=== PATIENT | female | born 1985 | race African-American/Black ===

== ENCOUNTER 2017-06-04 17:53 | Inpatient (IN) | payer OTHER ==
[~2017-06-04] VITALS: Ht 170.2 cm; Wt 140.2 kg
[2017-06-04 19:48] LABS: ABSOLUTE BASOPHIL COUNT 0.1 /CUMM (0.0-0.2); ABSOLUTE EOSINOPHIL COUNT 0.1 /CUMM (0.0-0.7); ABSOLUTE GRANULOCYTE CT 6.3 /CUMM (1.4-6.5); ABSOLUTE LYMPH COUNT 1.8 /CUMM (1.2-3.4); ABSOLUTE MONOCYTE COUNT 0.7 /CUMM (0.10-0.60); BASOPHIL % 0.7 % (0.0-2.0); EOSINOPHIL % 1.2 % (0-5); GRANULOCYTE % 70.3 % (42.2-75.2); HEMATOCRIT 34.3 % (37-47); MEAN CORPUSCULAR HGB 26.4 PG (27.0-31.0); MEAN CORPUSCULAR HGB CONC 32.6 G/DL (33.0-37.0); MEAN CORPUSCULAR VOLUME 81.1 FL (81.0-99.0); MEAN PLATELET VOLUME 8.2 FL (7.4-10.4); PLATELET COUNT 338 /CUMM (130-400); RED BLOOD CELL CT 4.23 /CUMM (4.20-5.40)
--- NOTE | 2017-06-04 21:24 | History & Physical ---
General Information and HPI MD Statement: I have seen and personally examined CHRIST VALDEZ and documented this H&P. The patient is a 31 year old female at [] weeks and [] days gestation who presented with a chief complaint of []. Oligohydramnios and elevated blood pressure. Patient has a history of chronic hypertension she was on 81 mg of aspirin throughout she denies rupture of membranes however I she has only 3 pockets of 1 cm on the ultrasound. Her NST is reactive her PIH labs are normal. Secondary to patient's - induced hypertension and oligo we've discussed induction of labor with misoprostol and Pitocin patient aware the risks and signed her consents History of Present Illness: 31-year-old 1 para 0 at 38-5/7 weeks gestation presents with oligohydramnios -induced hypertension for induction. Patient seen in my office for a routine ultrasound fluid noted to be low. Patient seen and evaluated childbirth center with elevated blood pressures 1:30 over 90s PIH labs are normal Allergies/Medications Allergies: Coded Allergies: penicillin G (UNKNOWN 06/04/17) Past History development advisor History : 1 Para: 0 Last Menstrual Period: 08/03/2016 Past development advisor History: none Surgical History Pertinent Surgical History: none Past Family/Social History Psychosocial History Smoking Status: Former Smoker Review of Systems Review of Systems: Patient denies headache visual changes fever abdominal pain Exam & Diagnostic Data Obstetric Exam Wgt Gained During : 19 pounds Pelvimetry: Untested Dilation (cm): 1 Effacement (%): 50 Station: 0 Membranes: intact Fluid: unknown Fundal Height (cm): 39 Multiple Gestation? No Contractions: None Patient for Induction? Yes Colunga Score Colunga Score Response Value Cervix Position: posterior 0 Cervix Consistency: soft 2 Cervix Effacement: 30-50% 1 Cervix Dilation: 1-2 cm 1 Total 4 Physical Exam: Obese white female HEENT anicteric Abdomen soft nontender estimated weight 6 pounds extremities S1 edema reflexes +2 negative Homans Labs Blood Type & Rh: PositiveB Antibody Screen: Negative Hct/Hgb & Platelets #1: /37/140 Hct/Hgb & Platelets #2: 32 Rubella: I VDRL #1: Pending VDRL #2: Pending HbsAg: Pending HIV #1: [facility] NA HIV #2 Negative 1 Hr P Group B Strep: Positive Initial Ultrasound: Normal Anatomy Ultrasound: Normal Genetic Testing: Negative Assessment/Plan Assessment/Plan: Assessment assessment term oligohydramnios -induced hypertension Plan serial induction misoprostol Pitocin risks reviewed with patient As Ranked By This Provider Problem List: 1. Oligohydramnios antepartum 2. induced hypertension, delivered, current hospitalization Core Measures Venous Thromboembolism VTE Risk Factors / No Mechanical VTE Prophylaxis d/t Other No VTE Pharm Prophylaxis d/t Other
--- NOTE | 2017-06-04 21:26 | PN- Obstetrical ---
Subjective Subjective: No contractions O complaint Objective Last 24 Hrs of Vital Signs/I&O As per the paper chart Physical Exam: Well-built white female HEENT anicteric Abdomen soft Claude weight 6 pounds Obstetric Exam Dilation (cm): 1 Effacement (%): 50 Station: 0 Membranes: unknown Fluid: unknown Multiple Gestation? No Contractions: None Assessment/Plan Assessment/Plan Song term PIH oligohydramnios plan misoprostol No. 1 placed
--- NOTE | 2017-06-05 03:40 | PN- Obstetrical ---
Subjective Subjective: FEELING PRESSURE Objective Last 24 Hrs of Vital Signs/I&O Intake & Output 06/05 0800 06/05 0000 06/04 1600 Intake Total Output Total Balance Patient 309 lb Weight Physical Exam: PE WELL BUILT BF ABD SOFT EXT -EDEMA Obstetric Exam Dilation (cm): 2 Effacement (%): 80 Station: 0 Membranes: intact Fluid: unknown Multiple Gestation? No Contractions: Q 10 MINUTES Assessment/Plan Assessment/Plan ASSESS OLIGOHYDRAMNIOS AT 38 WEEKS WITH PIH PLAN MISOPROSTIL 2
--- NOTE | 2017-06-05 08:28 | PN- Obstetrical ---
Subjective Subjective: THERE HAS GOT TO BE A BETTER WAY Objective Last 24 Hrs of Vital Signs/I&O Intake & Output 06/05 1600 06/05 0800 06/05 0000 Intake Total Output Total Balance Patient 309 lb Weight Physical Exam: PE OBESE BF IN NAD ABD SOFT NT EXT +2 EDEMA _REFLEXES Obstetric Exam Dilation (cm): 2 Effacement (%): 90 Station: 0 Membranes: intact Fluid: unknown Multiple Gestation? No Contractions: NONE Assessment/Plan Assessment/Plan ASSESS TERM CHRONIC HTN OLIGO PLAN PIT/EPIDURAL OBERVE FOR
--- NOTE | 2017-06-05 17:28 | PN- Obstetrical ---
Subjective Subjective: Failed attempt at epidural by anesthesia alternatives to pain management reviewed with the patient Objective Last 24 Hrs of Vital Signs/I&O Intake & Output 06/05 1600 06/05 0800 06/05 0000 Intake Total Output Total Balance Patient 309 lb Weight Physical Exam: Obese black female in no apparent distress with glasses HEENT icteric Abdomen soft Estimated weight 3700 g Right forearm swollen good pulses Obstetric Exam Dilation (cm): 5 Effacement (%): 90 Station: 0 Membranes: AROM Fluid: clear Multiple Gestation? No Contractions: Every 6 minutes Assessment/Plan Assessment/Plan Assessment is term oligohydramnios chronic hypertension Plan observe for on changing IV location on nitrous oxide Problem List: 1. induced hypertension, delivered, current hospitalization 2. Oligohydramnios antepartum Attending MD Review Statement Attending Statement Attending MD Statement: examined this patient
--- NOTE | 2017-06-05 19:37 | PN- Obstetrical ---
Subjective Subjective: USING NITROUS FOR PAIN Objective Last 24 Hrs of Vital Signs/I&O Intake & Output 06/05 1600 06/05 0800 06/05 0000 Intake Total Output Total Balance Patient 309 lb Weight Physical Exam: PE OBESE BFIN NAD ABD SOFT Obstetric Exam Dilation (cm): 6 Effacement (%): 90 Station: 0 Membranes: AROM Fluid: clear Multiple Gestation? No Contractions: Q 6 MINUTES Assessment/Plan Assessment/Plan ASSESS TERMPREGNANCY OLIGO PLAN CONT PITOCIN
[2017-06-06 00:30] LABS: ABSOLUTE BASOPHIL COUNT 0 /CUMM (0.0-0.2); ABSOLUTE EOSINOPHIL COUNT 0 /CUMM (0.0-0.7); ABSOLUTE LYMPH COUNT 1.1 /CUMM (1.2-3.4); ABSOLUTE MONOCYTE COUNT 0.4 /CUMM (0.10-0.60); BASOPHIL % 0 % (0.0-2.0); EOSINOPHIL % 0.1 % (0-5); GRANULOCYTE % 88.6 % (42.2-75.2); HEMATOCRIT 34.8 % (37-47); MEAN CORPUSCULAR HGB 27.1 PG (27.0-31.0); MEAN CORPUSCULAR HGB CONC 33.3 G/DL (33.0-37.0); MEAN CORPUSCULAR VOLUME 81.2 FL (81.0-99.0); MEAN PLATELET VOLUME 7.9 FL (7.4-10.4); PLATELET COUNT 345 /CUMM (130-400); RBC DISTRIBUTION WIDTH 14.5 % (11.5-14.5); RED BLOOD CELL CT 4.29 /CUMM (4.20-5.40); WHITE BLOOD CELL COUNT 13.5 /CUMM (4.8-10.8)
--- NOTE | 2017-06-06 00:50 | PN- Obstetrical ---
Subjective Subjective: NO COMPLAINTS Objective Last 24 Hrs of Vital Signs/I&O PER CHART Physical Exam: PE WELL BUILT BF IN NAD HEENTPERRLAEOMI ABD SOFT NT EXT +1 EDEMA +2 REFLEXES Obstetric Exam Dilation (cm): 6 Effacement (%): 90 Station: 0 Membranes: intact Fluid: clear Multiple Gestation? No Contractions: Q 3 IUPC ADEQUATE Assessment/Plan Assessment/Plan ASSESS TERMPREGNANCY CHRONIC HTN OLIGO FAILURE TO DILATE PLAN C/S
--- NOTE | 2017-06-06 02:37 | Operative Report ---
Operative/Inv Procedure Report Surgery Date: 06/06/17 Name of Procedure: Primary low flap transverse section via Pfannenstiel skin incision Pre-Operative Diagnosis: All rest of dilatation oligohydramnios chronic hypertension and failed induction Post-Operative Diagnosis: : Cord same Estimated Blood Loss: 800 Surgeon/Public Information Officer: Kar MONTERO,Liss Morales and Dr. Bakari Felipe Anesthesia: general endotracheal tube Operative/Procedure Note Note: patient was taken the operating room placed on the table the abdomen was prepped and draped in standard fashion position after adequate induction of general anesthesia. Skin was cut carried down to rectus fascia was cut in curvilinear fashion in either direction using curved Cruz's. Dissected bluntly as well as sharply off of the rectus sheath. Peritoneal cavity was entered high into the abdomen the low platelet Cheri was placed in the lower end of the incision. In the lower uterine segment the uterus was cut a bladder flap was developed using Metzenbaums the bladder blade was replaced to protect the bladder and lower uterine segment use was nicked into with back denies dissected bluntly as well as sharply. The cord was noted at the top of the baby's head. He was delivered over the abdominal wall suction well into clear cornea was applied and cut was handed pediatricians waiting delivery room table resuscitation. Placenta was delivered manually noted to be intact with likely mature trial laps to ensure it was free of adherent membranes uses oversewn running locking suture transabdominal cavity after then irrigated copiously with warm saline to clear the peritoneum was reapproximated 0 the fascia was reapproximated with 2 to continuous sutur after the Bovie coagulation of the subcutaneous tissue. The counts were correct the patient was extubated and transferred recovery room awake alert clear urine
[2017-06-06 03:48] VITALS: BP 136/65
--- NOTE | 2017-06-06 09:13 | PN- Post Delivery/GYN ---
Subjective Subjective: NO COMPLAINTS Objective Last 24 Hrs of Vital Signs/I&O Vital Signs Date Time Temp Pulse Resp B/P B/P Pulse O2 O2 Flow FiO2 Mean Ox Delivery Rate 06/06 0348 136/65 Physical Exam: PE OBESE BF IN NAD ABD SOFT NT LOCHIA MINIMAL EXT -EDEMA Assessment/Plan Assessment/Plan ASSESS S/P C/S PLAN CONT PPC INCREASE AMBULATION
--- NOTE | 2017-06-06 09:44 | Cons- Medical ---
Pancho MONTERO,Bud 06/06/17 0944: General Information and HPI Consulting Request Date of Consult: 06/06/17 Requested By: Liss Lakhani MD Reason for Consult: Post Source of Information: patient, family, old records Exam Limitations: no limitations History of Present Illness: Ms Tatum is a 31-year-old female with past medical history of asthma and insulin resistance who was admitted to the hospital on 06/04/2017 after routine visit at the office of her obstetric and pallet sorter found that she was hypertensive and had oligohydramnios. She was 38 weeks and 5/7 days at this pont. The patient was subsequently induced and had a successful delivery a few hours prior to our interaction. She is a 1 para 1. During the time of our clinical interaction the patient appeared comfortable. She endorsed no complaints. She denied any vision changes, any headaches, any pain, any nausea or any vomiting, she complained of no issues voiding. Patient states that in the past she has had issues with hypertension and may have been placed on lisinopril although is unable to provide much of a clinical history. She did state that approximately May 13 when she began to see Dr. Lakhani she was told that her blood pressure was high. She subsequently took time off work and noted that blood pressure improved. I called the office of her primary care physician Dr. Shyam Islas ([phone] ) who she last saw in June 2016 for a follow-up appointment after being admitted to [facility] where she was admitted for asthma exacerbation and pneumonia. It appears that the only medication the patient had been on were inhalers (for asthma) and metformin. Her grandmother was present in the room. Her new born baby was also present in the room. Over the course of the she stated that she continue to take aspirin. Allergies/Medications Allergies: Coded Allergies: penicillin G (UNKNOWN 06/04/17) Current Medications: Current Medications Sig/Jeremy Start time Last Medication Dose Route Stop Time Status Admin Acetaminophen 1,000 MG ONCE ONE 06/05 2199 DC 06/05 N/A 1 UNIT IV 06/05 Benzocaine/Menthol 1 TERRY Q2P PRN 06/06 0930 AC 06/06 PO 1318 Butorphanol Tartrate 2 MG ONCE ONE 06/05 2199 DC 06/05 IM 04/12 2201 2120 Butorphanol Tartrate 2 MG ONCE ONE 06/05 2200 DC 06/05 IV 06/05 2201 2118 Butorphanol Tartrate 1 MG Q4P PRN 06/05 0830 DC IM Butorphanol Tartrate 1 MG Q4P PRN 06/05 0830 DC IV Carboprost 250 MCG ONE ONE 06/06 0245 DC Tromethamine IM 06/06 0246 Cefazolin Sodium 2,000 MG .STK-MED ONE 06/06 005 DC IM 06/06 005 Citric Acid/Sodium 30 ML .[0NCE] 06/06 0100 DC 06/06 Citrate PO 0100 Clindamycin 900 MG IQ8 06/05 0000 DC 06/05 Dextrose/Water 50 ML IV 2218 Enoxaparin Sodium 40 MG DAILY 06/06 0900 AC 06/06 SC 0807 Fentanyl Citrate 200 MCG .STK-MED ONE 06/06 50 DC IM 06/06 005 Gentamicin Sulfate 80 MG ONE ONE 06/06 0100 DC 06/06 Dextrose/Water 100 ML IV 06/06 0129 0138 Hydromorphone HCl 2 MG Q3P PRN 06/06 0930 AC 06/06 PO 1319 Hydromorphone HCl 50 MG Q24H PRN 06/06 0200 AC 06/06 Sodium Chloride 45 ML IV 0237 Ibuprofen 800 MG Q6P PRN 06/06 0930 AC PO Ketorolac 30 MG ONCE ONE 06/06 0945 DC 06/06 Tromethamine IV 06/06 0946 0959 Lactated Ringer's 1,000 ML .Q8H 06/06 1100 DC 06/06 IV 1050 Lactated Ringer's 1,000 ML CONTINOUS INFUSION 06/06 0100 DC IV Lactated Ringer's 1,000 ML Q8H 06/05 1999 W[place] 06/05 IV 2032 Midazolam HCl 5 MG .STK-MED ONE 06/06 005 DC IM 06/06 005 Misoprostol 25 MCG Q4P PRN 06/05 1999 DC 06/05 VAG 0230 Morphine Sulfate 4 MG .STK-MED ONE 06/06 005 DC IM 06/06 005 Ondansetron HCl 4 MG ONCE ONE 06/06 0930 DC PO 06/06 0931 Oxytocin 20 UNITS ONCE ONE 06/06 0315 DC 06/06 Lactated Ringer's 1,000 ML IV 06/06 1114 0311 Oxytocin 10 UNITS .STK-MED ONE 06/06 0059 DC IM 06/06 0100 Oxytocin 30 UNITS PER PROTOCL 06/05 0845 DC 06/05 Lactated Ringer's 500 ML IV 0840 Review of Systems Review of Systems Constitutional: Reports: see HPI. GI: Reports: vomiting (Prior to ). Past History Travel History Traveled to [place] past 21 day No Surgical History Surgical History: 1 Psychosocial History Where Do You Live? Home Smoking Status: Former Smoker Exam & Diagnostic Data Last 24 Hrs of Vital Signs/I&O Vital Signs Date Time Temp Pulse Resp B/P B/P Pulse O2 O2 Flow FiO2 Mean Ox Delivery Rate 06/06 0348 136/65 Physical Exam General Appearance: well developed/nourished, no apparent distress, alert, obese Head: atraumatic, normal appearance Eyes: Bilateral: EOMI. Ears, Nose, Throat: normal pharynx, normal ENT inspection, Cervical tendenopathy Neck: normal inspection Respiratory: normal breath sounds, chest non-tender Cardiovascular: regular rate/rhythm, tachycardia Peripheral Pulses: 4+ dorsalis pedis (R), 4+ dorsalis pedis (L) Gastrointestinal: normal bowel sounds, soft, non-tender, C -Section Scar. Clean Dry and Intact Extremities: normal inspection, no edema Neurologic/Psych: awake, alert, oriented x 3 Cranial Nerves: PERRL Last 24 Hrs of Labs/Armando: Laboratory Tests 06/06/17 0730: Urine Opiates Screen > 4000.00 H, Methadone Screen < 40, Barbiturate Screen < 60, Ur Phencyclidine Scrn < 6.00, Amphetamines Screen < 100, U Benzodiazepines Scrn > 800 H, Urine Cocaine Screen < 50, Urine Cannabis Screen 5.30, Urinalysis LIGHT H, Urine Color YEL, Urine Clarity HAZY H, Urine pH 6.0, Ur Specific [place] >= 1.030, Urine Protein 30 H, Urine Ketones >=80, Urine Nitrite NEG, Urine Bilirubin NEG@ICTO, Urine Urobilinogen 0.2, Ur Leukocyte Esterase NEG, Ur Microscopic SEDIMENT EXAMINED, Urine RBC 5-10 H, Urine WBC 1-3 H, Ur Epithelial Cells FEW, Urine Bacteria FEW H, Hyaline Casts 1-3 H, Granular Casts 1-3 H, Urine Mucus MANY H, Micro UA Comment MORE INFO: H, Urine Hemoglobin TRACE-INTACT, Urine Glucose NEG 06/06/17 0005: Estimated GFR > 60, Uric Acid 4.5, AST 19, ALT 33, Lactate Dehydrogenase 315, CBC w Diff NO MAN DIFF REQ, RBC 4.29, MCV 81.2, MCH 27.1, MCHC 33.3, RDW 14.5, MPV 7.9, Gran % 88.6 H, Lymphocytes % 8.2 L, Monocytes % 3.1, Eosinophils % 0.1, Basophils % 0, Absolute Granulocytes 12.0 H, Absolute Lymphocytes 1.1 L, Absolute Monocytes 0.4, Absolute Eosinophils 0, Absolute Basophils 0 Assessment/Plan Assessment/Plan Ms Tatum is a 31-year-old female with past medical history of asthma and diabetes who was admitted to the hospital on 06/04/2017 after routine visit at the office of her obstetric and pallet sorter found that she was hypertensive and had oligohydramnios. She was 38 weeks and 5/7 days at this pont. The medicine team was consult. For management of hypertension and the UA showing evidence of casts. induced/Transient hypertension. At the time of my clinical interaction with the patient her blood pressure was stable at 112/82. Over the past 24 hours she had labile hypertension as high as 168/104 and as low as 112/82. Her hypertension may be attributed to pain. Plan Ensure pain is well-controlled with Percocet. Use Dilaudid sparingly as studies documenting effects on the are limited. Ensure BP cuff sizes correct. An EKG has been ordered to rule out any LVH. If patient needs antihypertensive may consider labetalol. #Abnormal UA Casts reported in Urine. Brett attributed to decreased PO intake/Dehydration. Cr. normal. Plan Encourage PO intake. Outpatient follow up. History of Insulin Resistance. Plan: Consider addition of fingersticks 3 times a day at bedtime. Hemoglobin A1c. Lipid Panel. May consider resuming the patient on metformin 750 mg at the time of discharge. History of asthma. No signs of any wheezing or hypoxia Plan TRC and nebulizer treatments as needed. May resume albuterol if warranted. DVT prophylaxis as per CHEESEMAKER HELPER. Incentive spirometer. At the time of discharge please ensure the patient has a referral to primary care physician in the area that she lives in. Patient is a full code. Hba1c Lipid Panel ?Abdominal Imagin Problem List: 1. induced hypertension, delivered, current hospitalization Consult Acknowledgment - Thank you for your consult request. Carlos Dong MD 06/06/17 1433: General Information and HPI Allergies/Medications Home Med List: Hydromorphone HCl 2 MG TABLET 2 MG PO Q3P PRN PAIN SCALE 7-10 (SEVERE) Ibuprofen 800 MG TABLET 800 MG PO Q6P PRN PAIN SCALE 4-6 (MODERATE) Assessment/Plan Consult Acknowledgment - Thank you for your consult request. Attending MD Review Statement Attending Statement Attending MD Statement: examined this patient, discuss w/resident/PA/HELPER MARBLE FINISHER, agreed w/resident/PA/HELPER MARBLE FINISHER, discussed with family, reviewed EMR data (avail), discussed with nursing, amended to note Attending Assessment/Plan: The patient is a 31 yo female with h/o asthma and DM along with borderline HTN who was admitted to [facility] on 06[facility]04[facility] for delivery. She was seen in Dr. Lakhani's office and found to have HTN and oligohydramnios (38 weeks). In the past (pre-) she had been seen by Dr. Islas in [place] and treated with Lisinopril. Her BP had improved and she went off the medication. She denied chest pain, palpitations, headache or other symptoms. At the time of my exam her only complaint was right submandibular discomfort. Physical Exam: VS: Vital Signs Date Time Temp Pulse Resp B/P B/P Pulse O2 O2 Flow FiO2 Mean Ox Delivery Rate 06/06 0348 136/65 HEENT: eyes- PERRLA, EOMI solo- moist mucosa; + mild right submandibular swelling and tenderness Neck: no adenopathy, bruits Chest: clear Cor: RRR nl S1, S2 w/o murm Abd: BS+, s/p Ext: no edema Labs: as above Impression/Plan: #Borderline HTN- the patient did have some increased BP readings above her baseline, most likely related to delivery/. Has h/o borderline BP in past and was on Lisinopril. Plan: Will monitor BP closely (nursing using large cuff due to arm size). No medication at present- will use labetalol if needed. Will need to establish with PCP as outpatient. #Hyaline Casts- noted in urine. Urine concentrated due to volume depletion (SG 1.030). BUN/Cr & GFR is normal. No further w/u at present is needed. Plan: OP follow-up. #DM2- patient with h/o DM and was on Metformin. Plan: Monitor glucose levels and follow- insulin prn. #Right Submandibular Swelling- ? low grade sialadenitis? May be related to volume depletion. Plan: Encourage fluid and suck on lozenges. If not improving may need antibiotics. #h/o Asthma- lungs clear at present and pulse ox normal. Plan: TRC nebs if needed. Incentive spirometry.
[2017-06-07 08:05] LABS: ABSOLUTE BASOPHIL COUNT 0.1 /CUMM (0.0-0.2); ABSOLUTE EOSINOPHIL COUNT 0.1 /CUMM (0.0-0.7); ABSOLUTE MONOCYTE COUNT 1.2 /CUMM (0.10-0.60)
[2017-06-07 08:23] LABS: ABSOLUTE GRANULOCYTE CT 9.2 /CUMM (1.4-6.5); ABSOLUTE LYMPH COUNT 2.4 /CUMM (1.2-3.4); BASOPHIL % 0.4 % (0.0-2.0); EOSINOPHIL % 0.6 % (0-5); GRANULOCYTE % 70.8 % (42.2-75.2); MEAN CORPUSCULAR HGB 27.1 PG (27.0-31.0); MEAN CORPUSCULAR HGB CONC 32.8 G/DL (33.0-37.0); MEAN CORPUSCULAR VOLUME 82.5 FL (81.0-99.0); PLATELET COUNT 329 /CUMM (130-400); RBC DISTRIBUTION WIDTH 15.4 % (11.5-14.5); RED BLOOD CELL CT 3.58 /CUMM (4.20-5.40); WHITE BLOOD CELL COUNT 12.9 /CUMM (4.8-10.8)
[2017-06-07 08:30] LABS: HEMATOCRIT 29.5 % (37-47)
--- NOTE | 2017-06-07 11:29 | PN- Anesthesiology ---
Subjective Subjective: S/P attempted labor epidural multiple attempts without loss of resistance or CSF yesterday, 06/07/27, by HVAC CONTROLS TECHNICIAN and Attending Anesthesiologist. Pt now c/o posterior headache, neck pain, and back pain, without radiation to any extremities. There is no postural component, that is her pain is not relieved or improved with recumbant position. There is no photophobia. Objective Vital Signs and I&Os Ms Tatum was sitting up during our conversation, stated she had pain but did not appear to be in distress. Assessment/Plan Assessment/Plan I discussed with Ms. Tatum and her significant other the nature of PDPHA, including etiology, diagnosis, and treatment, including symptom management vs. epidural blood patch. I discussed with her that I do not feel she is a candidate for EBP for 2 reasons : 1) Her symptoms are not completely cosistent w/ PDPHA, although these signs and symptoms can be variable patient to patient. Although there can be a "wet tap without carri CSF, there was no CSF appreciated by the providers yesterday. 2) Given the difficulty experienced by multiple providers yesterday there is a greater chance that an EBP would be difficult if not impossible in my hands. The procedure is not without it's risks. Therefore I have advised Ms. Tatum to treat her symptoms with regular analgesics, rest and hydration, assuring her that if what she is experiencing is a PDPHA, that it is not dangerous and will resolve gradually over time, possibly as long as 2 weeks. Attending MD Review Statement Attending Statement Attending MD Statement: examined this patient, discussed with family, discussed w/nursing, Discussed with Dr. Giraldo
--- NOTE | 2017-06-07 11:32 | PN- Post Delivery/GYN ---
Subjective Subjective: Patient complains of mild headache Review of Systems: No flatus Objective Last 24 Hrs of Vital Signs/I&O Blood pressures 130s over 80s afebrile Physical Exam: Incision clean dry and intact Extremities: Nontender Assessment/Plan Assessment/Plan Status post previous primary postop day #1 with possible spinal headache and labile blood pressures Plan: Appreciate anesthesia consult; advance diet increase activity as needed; appreciate medicine consult will hold off hypertensive meds
--- NOTE | 2017-06-08 10:59 | PN- Post Delivery/GYN ---
Subjective Subjective: HEAD AND NECK PAIN WORSE TODAY; CANNOT SIT UP Review of Systems: NEG Objective Last 24 Hrs of Vital Signs/I&O VSS AFEBRILE Physical Exam: POOR ROM NECK INCISION C/D/I EXT NT Assessment/Plan Assessment/Plan S/P C/S POD 2 WITH SPINAL DREW CONSULT ANESTHESIA FOR EVAL AND BLOOD PAICH Problem List: 1. induced hypertension, delivered, current hospitalization
[2017-06-08 16:05] LABS: ABSOLUTE BASOPHIL COUNT 0 /CUMM (0.0-0.2); ABSOLUTE EOSINOPHIL COUNT 0.1 /CUMM (0.0-0.7); ABSOLUTE GRANULOCYTE CT 8.2 /CUMM (1.4-6.5); ABSOLUTE MONOCYTE COUNT 0.9 /CUMM (0.10-0.60); BASOPHIL % 0.3 % (0.0-2.0); EOSINOPHIL % 1.2 % (0-5); GRANULOCYTE % 72.3 % (42.2-75.2); HEMATOCRIT 29.4 % (37-47); MEAN CORPUSCULAR HGB 27.2 PG (27.0-31.0); MEAN CORPUSCULAR VOLUME 82.3 FL (81.0-99.0); MEAN PLATELET VOLUME 7.2 FL (7.4-10.4); PLATELET COUNT 350 /CUMM (130-400); RBC DISTRIBUTION WIDTH 15.4 % (11.5-14.5); RED BLOOD CELL CT 3.57 /CUMM (4.20-5.40); WHITE BLOOD CELL COUNT 11.3 /CUMM (4.8-10.8)
--- NOTE | 2017-06-09 09:00 | PN- Medicine Consult ---
Assessment/PlanMedical Consult Assessment/Plan Assessment: patient discharged before sen by provider
[2017-06-09] MEDS ORDERED: IBUPROFEN800 M1 PO (10:02)
[2017-06-09] MEDS ORDERED: HYDROMORPHONE HC2 M1 PO (10:02)
== END 2017-06-09 11:20 | DRG 540 ==
LOC: CBCO 17:53 → GNO 19:36
PROVIDERS: Obstetrics & Gynecology; Specialist
PROC: 3E033VJ Introduction of Other Hormone into Peripheral Vein, Percutaneous Approach (ICD-10-PCS; 2017-06-05)
PROC: 10907ZC Drainage of Amniotic Fluid, Therapeutic from Products of Conception, Via Natural or Artificial Opening (ICD-10-PCS; 2017-06-05)
PROC: 3E0P7VZ Introduction of Hormone into Female Reproductive, Via Natural or Artificial Opening (ICD-10-PCS; 2017-06-05)
PROC: 10D00Z1 Extraction of Products of Conception, Low, Open Approach (ICD-10-PCS; principal; 2017-06-06)
PROC: 3E0 Administration, Physiological Systems and Anatomical Regions, Introduction (ICD-10-PCS; 2017-06-08)
DX: O41.03X0 Oligohydramnios, third trimester, not applicable or unspecified (principal); O13.4 Gestational [pregnancy-induced] hypertension without significant proteinuria, complicating childbirth; O89.4 Spinal and epidural anesthesia-induced headache during the puerperium; O61.0 Failed medical induction of labor; Z3A.39 39 weeks gestation of pregnancy; Z37.0 Single live birth; O62.1 Secondary uterine inertia; J45.909 Unspecified asthma, uncomplicated; O99.52 Diseases of the respiratory system complicating childbirth; Z88.0 Allergy status to penicillin; Z87.891 Personal history of nicotine dependence
CPT/HCPCS: GNOS; 36415; 59025; 80307; 81001; 87086; 87389; 93005; 93010; J0131; J0690; J1580; J1650; J1885; J7120